=== PATIENT | female | born 1940 | race Caucasian/White ===

== ENCOUNTER 2017-01-02 11:00 | Inpatient (IN) | payer MEDICARE, OTHER ==
[~2017-01-02] VITALS: Ht 165.1 cm; Wt 68.6 kg
--- NOTE | ~2017-01-02 | OR ---
PATIENT'S NAME: FERNY ESQUIVEL [facility] AGE: 76 Y [address] ROOM: [place] [address] LOCATION: [facility] ADMIT DATE: 01/15/2017 OR/Procedure Report DISCHARGE DATE: FAMILY PHYSICIAN: Artur Montague MD ATTENDING PHYSICIAN: DAYAN CRESPO SURGEON: Dayan Crespo MD ICER HAND: 1. GLENN Putnam. 2. Jayesh Soni CST/AYESHA. DATE OF PROCEDURE: 01/15/2017 PRE-OP DIAGNOSIS: Degenerative joint disease right knee. POST-OP DIAGNOSIS: Degenerative joint disease right knee. OPERATION: Right total knee arthroplasty with computer navigation. ANESTHESIA: Spinal anesthesia plus adductor canal block plus periarticular local anesthesia (ropivacaine with epinephrine and Toradol). ESTIMATED BLOOD LOSS: Less than 10 mL. DRAIN: None. SPECIMEN: None. COMPLICATIONS: None. IMPLANT SYSTEM: Laura Triathlon Size 4 right posterior stabilized femoral component Size 3 universal modular tibial baseplate 11 mm posterior stabilized size 3 X3 tibial polyethylene insert 29 mm Oval X3 patella component (triple pegged). INDICATIONS FOR SURGERY: The patient is a 76-year-old female, who presents with advanced right knee degenerative joint disease and associated severely compromised activities of daily living. The patient has decided to proceed with knee replacement after having been thoroughly counseled regarding the associated risks, benefits, and limitations. We have specifically reviewed the risks and implications of infection, deep venous thrombosis, pulmonary embolism, mortality, neurovascular complications, blood transfusion (and associated potential for disease transmission or transfusion reaction), stiffness, instability, mechanical deterioration of the components (due to wear and or loosening), and the potential need for revision. We have also emphasized the importance of active involvement and compliance with post- operative physical therapy as a means of optimizing range of motion and PATIENT'S NAME: FERNY ESQUIVEL [facility] AGE: 76 Y [address] ROOM: [place] [address] LOCATION: [facility] ADMIT DATE: 01/15/2017 OR/Procedure Report DISCHARGE DATE: FAMILY PHYSICIAN: Artur Montague MD ATTENDING PHYSICIAN: DAYAN CRESPO functional recovery. Informed consent has been granted. DESCRIPTION OF PROCEDURE: The patient was positioned supine after administration of anesthesia and prophylactic antibiotics. A well-padded pneumatic tourniquet was placed around the right proximal thigh, and the right lower extremity was prepped and draped with vigilant sterile technique. The patient's name as well as the intended operative side and procedure were confirmed with a verbal time-out involving myself, the circulating nurse, the scrub nurse, and the anesthesiologist. Examination under anesthesia demonstrated no active skin lesions or masses. There was a large effusion. There was no erythema. There was no abnormal warmth. Range of motion under anesthesia was from a 5-degree flexion contracture to 130 degrees of flexion. There was no ligamentous insufficiency. The right lower extremity was elevated and exsanguinated with an Esmarch wrap, and the pneumatic tourniquet was inflated to 300mmHg. The knee was approached through a longitudinal midline incision. A medial parapatellar arthrotomy was performed and the patella was everted. Examination of the joint space demonstrated eburnated bone with deep longitudinal striations in the eroded subchondral bone involving virtually the entire patella and the lateral 75% of the femoral trochlea. There was erosion of several millimeters of bone from the lateral half of the patella and the lateral half of the femoral trochlea. There was a 2 cm mobile osteophyte at the lateral margin of the patella and a 1 cm mobile osteophyte at the superior pole of the patella. There were small osteophytes at the medial and lateral femoral condyles. There were grade 3 degenerative changes at the lateral half of the medial femoral condyle and a 1 cm region at the central aspect of the lateral femoral condyle. There was aceves discoloration of the articular cartilage involving a 1 cm region at the medial margin of the medial tibial plateau and the central aspect of the lateral tibial plateau. There was no significant tearing of the medial or lateral menisci. There was extensive moderately proliferative synovitis with extensive hemosiderin staining. Remnants of the menisci and cruciate ligaments were excised. The IFTTT navigation femoral tracker was pinned in place at the distal aspect of the femoral trochlea. Absence of motion between the femur and the tracking device was confirmed manually and visually. Femoral osseous landmarks were obtained in order to calibrate the computer navigation system. Landmarks included the center of rotation of the ipsilateral hip, the center-point of the distal femur, the femoral AP axis, 57 points on the medial femoral condyle articular surface, and 57 points on the lateral femoral condyle articular surface. The [employer] computer navigation system was subsequently utilized PATIENT'S NAME: FERNY ESQUIVEL [facility] AGE: 76 Y [address] ROOM: [id number] [place], [place] [address] LOCATION: [facility] ADMIT DATE: 01/15/2017 OR/Procedure Report DISCHARGE DATE: FAMILY PHYSICIAN: Artur Montague MD ATTENDING PHYSICIAN: DAYAN CRESPO to position the distal femoral resection block such that the distal femoral resection was performed perfectly perpendicular to the femoral mechanical axis. The distal femoral resection was performed with a adicate timeads oscillating saw. The [employer] computer navigation tibial tracker was pinned in place at the anterior aspect of the tibial plateau. Absence of motion between the tibia and the tracking device was confirmed manually and visually. Tibial osseous landmarks were obtained in order to calibrate the computer navigation system. Landmarks included the center-point of the tibial plateau, the AP tibial axis, 57 points on the medial tibial plateau articular surface, 57 points on the lateral tibial plateau articular surface, the medial malleolus, and the lateral malleolus. The [employer] computer navigation system was subsequently utilized to position the proximal tibial resection block such that the proximal tibial resection was performed perfectly perpendicular to the tibial mechanical axis. The proximal tibial resection was performed with a [employer] Precision oscillating saw. Perpendicularity of the tibial resection with respect to the tibial shaft axis was reconfirmed by inserting a spacer- block attached to an extramedullary guide indira. External rotation of the anterior and posterior femoral resections was set parallel to the epicondylar axis and carefully adjusted in order to create a rectangular flexion gap. The box resection was performed with a reciprocating saw. Anterior and posterior chamfer resections were performed with the oscillating saw. Posterior condyle osteophytes were excised with an osteotome. All other osteophytes were excised with a rongeur. Resection of all remnants of the menisci was reconfirmed. Flexion and extension gaps were confirmed to be symmetric and well balanced with a spacer-block technique. The patella resection was performed with an oscillating saw such that the composite thickness of the reconstructed patella was equivalent to the thickness of the walker river patella. Patella tracking was optimal and there was no need for a lateral retinacular release. All trial components were removed and all prepared osseous surfaces were thoroughly irrigated with pulsatile saline lavage and dried prior to cementing all three components in a single stage using [place] Simplex cement containing pre-mixed tobramycin. All extruded excess cement was removed. The entire joint space was thoroughly inspected and thoroughly irrigated with bacteriostatic pulsatile saline lavage to assure that there was no residual debris of any sort. Final range of motion was full extension (with no passive hyperextension) to 130 degrees of flexion. Patella tracking was reconfirmed to be optimal. There was very good anteroposterior stability at 90 degrees of flexion. There PATIENT'S NAME: FERNY ESQUIVEL [facility] AGE: 76 Y [address] ROOM: [address] [address] LOCATION: [facility] ADMIT DATE: 01/15/2017 OR/Procedure Report DISCHARGE DATE: FAMILY PHYSICIAN: Artur Montague MD ATTENDING PHYSICIAN: DAYAN CRESPO was less than 1 mm of medial lift-off to valgus stress in full extension. There was less than 1 mm of lateral lift-off to varus stress in full extension. The arthrotomy was closed with multiple simple and [id number] interrupted #1 Vicryl. Subcutaneous tissues were thoroughly re-irrigated with bacteriostatic pulsatile saline lavage. Subcutaneous tissues were re- approximated with simple buried interrupted #0 Vicryl sutures. The skin was closed with simple buried interrupted 2-0 Vicryl sutures followed by surgical hamzah. The dressing consisted of Xeroform gauze, 4x4 gauze, ABD pads and two 6-inch Cain Wraps. There were no intra-operative complications. It should be noted that the physician's publisher assistant played an active, integral role throughout this entire operation. By providing expert retraction, they greatly facilitated and expedited safe and effective exposure of the distal femur, proximal tibia and patella for preparation and implantation of the components. They were also actively involved in the patient's positioning, prepping and draping, as well as wound closure. MD BERTHA HUBBARD/yosi /[id number] d: 01/15/17 1754 t: 01/25/17 2222, OPERATIVE SUMMARY
--- NOTE | ~2017-01-02 | DS ---
PATIENT'S NAME: FERNY ESQUIVEL [facility] AGE: 76 Y [address] ROOM: [place] [id number] LOCATION: [facility] ADMIT DATE: 01/15/2017 Discharge Summary DISCHARGE DATE: 01/17/2017 FAMILY PHYSICIAN: Artur Montague MD ATTENDING PHYSICIAN: Ulysses Arrieta PRIMARY DIAGNOSIS: Degenerative joint disease of the right knee. SECONDARY DIAGNOSES: 1. Osteoporosis. 2. Fibromyalgia. 3. Hypertension. 4. Hypercholesterolemia. 5. Spinal stenosis. 6. History of thyroid disease. 7. History of stomach cancer. PROCEDURE PERFORMED: Right total knee arthroplasty with computer-navigation. ANESTHESIA: Spinal anesthesia plus adductor canal block plus periarticular local anesthesia. HISTORY: The patient is a 76-year-old female, who presents with advanced right knee degenerative joint disease and associated severely compromised activities of daily living. The patient has decided to proceed with total knee arthroplasty after having been thoroughly counseled regarding the risks, benefits, limitations, and alternatives. Please refer to the outpatient clinic notes and admission history and physical for this patient. HOSPITAL COURSE: The patient underwent a right total knee arthroplasty on 01/15/2017 without complications. Spinal anesthesia plus adductor canal block plus periarticular local anesthesia was utilized. The patient received 24 hours of perioperative prophylactic antibiotics and remained hemodynamically stable and neurovascularly intact throughout the entire hospital course. The postoperative prophylactic deep venous thrombosis prophylaxis consisted of Xarelto 10 mg, early mobilization, and pneumatic compression devices. Daily physical therapy for gait training, transfer training, range of motion, and quadriceps isometric exercises were received. The patient progressed well in physical therapy. On the date of discharge, the incision at the knee was healing well and showed no signs of infection. DISPOSITION: Home. DISCHARGE ACTIVITY: The patient is to bear weight as tolerated with range of motion and quadriceps isometric exercises as instructed. The operative PATIENT'S NAME: FERNY ESQUIVEL [facility] AGE: 76 Y [address] ROOM: [address] [address] LOCATION: [facility] ADMIT DATE: 01/15/2017 Discharge Summary DISCHARGE DATE: 01/17/2017 FAMILY PHYSICIAN: Artur Montague MD ATTENDING PHYSICIAN: Ulysses Arrieta extremity is to be elevated at least 90% of the day. There is to be sterile 4x4 gauze dressings to the incision daily. Dr. Arrieta is to be notified immediately if there is any increased pain, fevers, chills, erythema, or drainage. DISCHARGE MEDICATIONS: Include: 1. Xarelto 10 mg, take 1 tablet p.o. daily for DVT prevention. 2. Valium 5 mg, take 1/2 tablet to 1 tablet every 6 hours as needed for muscle spasms. 3. Dilaudid 2 mg, take 1 to 2 tablets p.o. every 4 hours as needed for pain. FOLLOWUP: Followup appointment is to be with Dr. Arrieta on Sunday, January 22, 2017, for initial postoperative evaluation and x-rays at that time. GLENN FARR FOR MD BEHZAD HUBBARD/juanl /[id number] d: 01/24/17 1221 t: 01/26/17 1040, DISCHARGE SUMMARY
[~2017-01-02 11:00] MED LIST: ALEVE220 MG PO; BIOTIN5000 MCG PO; EFFEXOR XR75 MG PO; GALZIN25 MG PO; GINGER ROOT550 MG PO; INSTAFLEX PO; IRON325 M1 PO; LEVOTHROID (S100 MCG PO; MIRAPEX0.25 MG PO; NEURONTIN300 MG PO; NIACIN50 MG PO; TART CHERRY CA1 EACH PO; ULTRAM50 MG PO; VALSARTAN-HCTZ1 EACH PO; XANAX0.5 MG PO; ZINC LOZENGE25 MG PO
--- NOTE | 2017-01-15 14:56 | NUR ---
Introduced self to patient, daughter and friend. Patient and daughter attended preop class. Reports she lives in [place]. Has 2 story home with 3 steps to get in home. Reports has walker, cane, wheelchair, long shoe horm, telecom sales consultant, taller toilet. Has lifeline at home. Plans to have help from daughter and sister upon discharge. Anticipates will use [facility] for OP PT. Will follow and assist as needs identified.
--- NOTE | 2017-01-15 17:37 | NUR ---
Significant Event: From PACU at 1145. Dressing C/D/I. Ez wrap ice at all times. Ambulates with one assist, walker and gaitbelt. Voids without difficulty. CSM WNL. Dilaudid 2mg and Tylenol 1000mg last at 1641. Room air. Pleasant and cooperative with cares. Follow up:
--- NOTE | 2017-01-16 04:10 | NUR ---
Patient alert and oriented x3, very pleasant and cooperative, csm with in normal limits, transfers well standby assist with walker, dressing clean dry and intact, pain has been under control tonight, patient has rested well
--- NOTE | 2017-01-16 09:45 | NUR ---
Introduced self/role to patient, she lives in [place]. She has a lot of her DME already but has decided she may need a safety frame from her toilet. I put a script on her chart and printed off the DME places in [place]. Patient states she also has a lifeline at home. Daughter will be staying with her and then her sister. Both are coming down today to go to joint class with her. She inquired about HHC. I stated she could discuss that with Doctor Berny at her follow up but usually best to go to outpatient therapies. She was worried because she can't drive for 4 weeks. I asked if there was a handibus? She said yes, she hadn't thought of that, it is only $2 a ride. She will do that M-F. Denied any other discharge needs. Added my name to her marker board, planning for discharge tomorrow.
--- NOTE | 2017-01-16 15:23 | NUR ---
PATIENT DOING WELL. PROBABLY HOME TOMORRROW. DILAUDID FOR PAIN, LAST AT 1415. XANAX AT 1515 FOR ANXIOUSNESS. TORADOL IV AT 1300 FOR BREAKTHROUGH PAIN. VALIUM AT 1200 FOR SPASMS. UP TO BR WITH MINIMAL ASSISTANCE. VSS. FAMILY ASSISTING WITH CARE. CSM ADEQUATE. NEEDS REMINDING TO USE CALL LIGHT WHEN IN BATHROOM OR IN BED AND WANTS TO GET UP. ZEYAD WRAP DRESSING D/I TO RIGHT KNEE.
--- NOTE | 2017-01-17 02:05 | NUR ---
Shift Summary: Patient can ambulate with standby assist/walker. Tolerating regular diet well. Voiding without difficulty. Had BM this am. Good pain control with Dilaudid 2mg. Will go home today.
[2017-01-17] MEDS ORDERED: TYLENOL EXTRA500 MG PO (04:35)
[2017-01-17] MEDS ORDERED: COLACE100 MG PO (04:36)
[2017-01-17] MEDS ORDERED: MIRALAX17 GM PO (04:37)
[2017-01-17] MEDS ORDERED: XARELTO10 MG PO (04:37)
[2017-01-17] MEDS ORDERED: VALIUM5 MG PO (13:29)
[2017-01-17] MEDS ORDERED: DILAUDID 2MG(HYD2 MG PO (13:30)
[2017-01-17] MEDS ORDERED: CELEBREX200 MG PO (13:31)
--- NOTE | 2017-01-17 15:01 | NUR ---
D: Patient dismissed to home with family assist. Taking analgesic prn for pain with relief. Ambulates with walker and standby assist. Gait steady. RT knee incision approximated with hamzah. Patient and family voice understanding of dismissal instruction. Dismissed with dismissal instructions, rx and belongings
== END 2017-01-17 14:30 | disposition disaster alternative care site (69) | DRG 470 ==
LOC: G3N 01-15 06:13
PROVIDERS: ADMIT Orthopaedic Surgery
PROC: 0SRC0J9 Replacement of Right Knee Joint with Synthetic Substitute, Cemented, Open Approach (ICD-10-PCS; principal; 2017-01-15)
DX: M17.0 Bilateral primary osteoarthritis of knee (principal); I10 Essential (primary) hypertension; F41.9 Anxiety disorder, unspecified; F32.9 Major depressive disorder, single episode, unspecified; G25.81 Restless legs syndrome; E78.00 Pure hypercholesterolemia, unspecified; E03.9 Hypothyroidism, unspecified; M65.9 Synovitis and tenosynovitis, unspecified; M81.0 Age-related osteoporosis without current pathological fracture; M79.7 Fibromyalgia; M48.00 Spinal stenosis, site unspecified; Z85.028 Personal history of other malignant neoplasm of stomach
CPT/HCPCS: C1713; C1776; J0690; J1100; J1885; J2250; J2405; J2795; J7120

== ENCOUNTER → 2017-01-04 | Outpatient (CLI) | payer MEDICARE, OTHER ==
[~2017-01-04] MED LIST changes: +CELEBREX200 MG PO; +COLACE100 MG PO; +DILAUDID 2MG(HYD2 MG PO; +MIRALAX17 GM PO; +TYLENOL EXTRA500 MG PO; +VALIUM5 MG PO; +XARELTO10 MG PO
== END | disposition disaster alternative care site (69) ==
LOC: GNJRC 10:28
DX: Z01.812 Encounter for preprocedural laboratory examination (principal); M17.11 Unilateral primary osteoarthritis, right knee